=== PATIENT | male | born 1960 ===

== ENCOUNTER 2017-06-25 09:47 | Emergency (ER) | payer MEDICAID, OTHER ==
[2017-06-25 10:09] VITALS: TEMP 98.3
[2017-06-25] MEDS ORDERED: Belladonna-Phenobarbital PO STA (10:51)
[2017-06-25] MEDS ORDERED: Sodium Chloride 0.9% 1,000 ML IV ONE (10:51)
[2017-06-25] MEDS ORDERED: Aluminum Hydroxide/Magnesium Hydroxide Susp (30 mL) PO STA (10:51)
[2017-06-25] MEDS ORDERED: Ciprofloxacin 400mg/200ml D5W 400 MG/200 ML BAG IVPB STA (10:54)
[2017-06-25] MEDS ORDERED: metroNIDAZOLE IV 500 mg/100 ml 500 MG/100 ML BAG IVPB ONE (10:55)
[2017-06-25 11:14] LABS: BASO # 0.1 K/uL (0.0-0.2); BASO % 0.7 % (0.0-2.0); EOS # 0.3 K/uL (0.0-0.7); EOS % 2.5 % (0.0-4.0); HEMATOCRIT 44.5 % (35.0-51.0); LYMPH # 2.1 K/uL (1.0-4.3); MEAN CELL VOLUME 89.2 fL (80.0-94.0); MEAN CORPUSCULAR HEMOGLOBIN 30.4 pg (27.0-31.0); MEAN CORPUSCULAR HGB CONC 34.1 g/dL (33.0-37.0); MEAN PLATELET VOLUME 8.5 fL (7.2-11.7); MONO # 1.1 K/uL (0.0-0.8); MONO % 10.4 % (0.0-10.0); WHITE BLOOD COUNT 10.5 K/uL (4.8-10.8)
--- NOTE | 2017-06-25 11:19 | C.PDOC ---
History Of Present Illness 56 y/o male, with no significant PMHx, presents to the ED for evaluation of left lower quadrant abdominal pain which began around 1 week ago. Patient denies fever, chills, back pain, nausea, vomiting, dysuria, hematuria. Time Seen by Provider: 06/25/17 10:27 Chief Complaint (Nursing): Abdominal Pain History Per: Patient History/Exam Limitations: no limitations Onset/Duration Of Symptoms: Days (1 week ) Current Symptoms Are (Timing): Still Present Location Of Pain/Discomfort: LLQ Radiation Of Pain To:: None Quality Of Discomfort: "Pain" Associated Symptoms: denies: Fever, Chills, Nausea, Vomiting, Back Pain, Urinary Symptoms (dysuria, hematuria ) Exacerbating Factors: None Alleviating Factors: None Additional History Per: Patient Past Medical History Reviewed: Historical Data, Nursing Documentation, Vital Signs Vital Signs: Last Vital Signs Temp 98.3 F 06/25/17 10:05 Pulse 47 L 06/25/17 12:09 Resp 18 06/25/17 12:09 BP 120/78 06/25/17 12:09 Pulse Ox 98 06/25/17 15:56 - Medical History PMH: No Chronic Diseases Surgical History: Appendectomy (09/30/14) - [facility] Procedures LAPAROSCOP APPENDECTOMY (09/29/14) Family History: States: Unknown Family Hx - Social History Hx Tobacco Use: No Hx Alcohol Use: Yes (Rare Alc. Use) Hx Substance Use: No - Immunization History Hx Tetanus Toxoid Vaccination: No Hx Influenza Vaccination: No Hx Pneumococcal Vaccination: No Review Of Systems Constitutional: Negative for: Fever, Chills Gastrointestinal: Positive for: Abdominal Pain (LLQ). Negative for: Nausea, Vomiting Genitourinary: Negative for: Dysuria, Hematuria Physical Exam - Physical Exam Appears: Non-toxic, No Acute Distress Skin: Normal Color, Warm, Dry Head: Atraumatic, Normacephalic Eye(s): bilateral: Normal Inspection Oral Mucosa: Moist Neck: Supple Chest: Symmetrical, No Deformity, No Tenderness Cardiovascular: Rhythm Regular, No Murmur Respiratory: Normal Breath Sounds, No Rales, No Rhonchi, No Wheezing Gastrointestinal/Abdominal: Tenderness (to left lower quadrant on palpation ), No Guarding, No Rebound Back: Normal Inspection, No Vertebral Tenderness, No Paraspinal Tenderness Extremity: Normal ROM, Capillary Refill (less than 2 seconds ) Neurological/Psych: Oriented x3, Normal Speech, Normal Cognition Gait: Steady ED Course And Treatment - Laboratory Results Result Diagrams: 06/25/17 11:10 06/25/17 11:10 O2 Sat by Pulse Oximetry: 98 (on RA) Pulse Ox Interpretation: Normal Medical Decision Making Medical Decision Making: Impression: 56y/o male with left lower quadrant abdominal pain Differential Diagnoses include but are not limited to: Diverticulitis Plan: * labs * Abdomen Flat Plate XR * Ciproflaxin IVP * PO * Flagyl IVP * Maalox PO * Pepcid IV * IV Fluids * reassess and disposition Progress: labs, Abdomen Flat Plate ordered and reviewed. Patient received Ciproflaxin IVP , PO, Flagyl IVP, Maalox PO, Pepcid IV, and IV fluids. Disposition Counseled Patient/Family Regarding: Studies Performed, Diagnosis, Need For Followup, Rx Given - Disposition Referrals: [facility] [Outside] Disposition: HOME/ ROUTINE Disposition Time: 14:00 Condition: STABLE Prescriptions: Ciprofloxacin HCl [Cipro] 500 mg PO BID #10 tablet Docusate Sodium [Colace] 100 mg PO DAILY #30 capsule Magnesium Citrate [Citrate of Mag] 300 ml PO DAILY #1 bottle Phosphate Enema [Fleet Enema 135 Ml] 135 ml RC DAILY #3 nma Instructions: Constipation (ED) Forms: Gen Discharge Inst Georgian - POA Present On Arrival: None - Clinical Impression Clinical Impression: Abdominal pain, Constipation - Scribe Statement The provider has reviewed the documentation as recorded by the Darrionibe (Reena Angel) Provider Attestation: All medical record entries made by the Scribe were at my direction and personally dictated by me. I have reviewed the chart and agree that the record accurately reflects my personal performance of the history, physical exam, medical decision making, and the department course for this patient. I have also personally directed, reviewed, and agree with the discharge instructions and disposition.
[2017-06-25 11:25] LABS: ALB/GLOB RATIO 1.2 (1.0-2.1); ALKALINE PHOSPHATASE 58 U/L (38-126); ALT/SGPT 27 U/L (21-72); AST/SGOT 18 U/L (17-59); BILIRUBIN,TOTAL 0.6 mg/dL (0.2-1.3); BLOOD UREA NITROGEN 14 mg/dL (9-20); CALCIUM 9.1 mg/dl (8.6-10.4); CARBON DIOXIDE 28 mmol/L (22-30); CHLORIDE 98 mmol/L (98-107); GFR AFRICAN-AMERICAN > 60; GLUCOSE,RANDOM 86 mg/dL (75-110); POTASSIUM 4.1 mmol/L (3.6-5.2); SODIUM 140 mmol/L (132-148); TOTAL PROTEIN 7.4 g/dL (6.3-8.3)
[2017-06-25] MEDS ORDERED: Belladonna-Phenobarbital ONE ×2 (11:35→11:38)
[2017-06-25] MEDS ORDERED: metroNIDAZOLE IV 500 mg/100 ml 500 MG/100 ML BAG ONE (11:35)
[2017-06-25] MEDS ORDERED: Aluminum Hydroxide/Magnesium Hydroxide Susp (30 mL) ONE ×2 (11:35→11:39)
[2017-06-25] MEDS ORDERED: Ciprofloxacin 400mg/200ml D5W 400 MG/200 ML BAG IVPB ONE (11:35)
[2017-06-25] MEDS ORDERED: Sodium Chloride 0.9% 0 ML ONE (11:35)
[2017-06-25] MEDS ORDERED: Sodium Chloride 0.9% 1,000 ML ONE (11:39)
[2017-06-25 12:10] VITALS: BP 120/78; PULSE 47; RESP 18
--- NOTE | 2017-06-25 13:19 | RAD ---
HISTORY: abd pain COMPARISON: Comparison made with CT scan of the abdomen and pelvis dated 09/29/2014 an obstructive series dated 10/2015. FINDINGS: BOWEL: Moderate amount of stool is seen within the cecum at ascending and proximal transverse colon as well as the descending colon consistent with mild constipation. No evidence of acute mechanical bowel obstruction. . Metallic clips and sutures seen overlying the right lower quadrant of the abdomen felt to be related to prior appendectomy BONES: Normal. OTHER FINDINGS: None. IMPRESSION: No evidence of acute mechanical bowel obstruction. Findings consistent with mild constipation. Findings consistent with prior appendectomy.
[2017-06-25 15:56] VITALS: O2SAT 98
== END 2017-06-25 14:03 | disposition home or self-care (01) ==
LOC: C.ER 09:47
DX: K59.00 Constipation, unspecified (principal); R10.32 Left lower quadrant pain
CPT/HCPCS: 74000; 80053; 85025; 96365; 96368; 96375; 99284; J0744; J7040